=== PATIENT | male | born 1985 | race Caucasian/White ===

== ENCOUNTER → 2017-02-27 | Outpatient (CLI) | payer OTHER ==
[2017-02-27 11:40] LABS: DAYS OF ABSTINENCE 4; METHOD OF COLLECTION MASTURBATION; SEMEN TIME OF COLLECTION 1030; TYPE OF SPECIMEN CONTAINER STERILE CUP
[2017-02-27 11:41] LABS: SEMEN COLOR YELLOW-GRAY (GRY/GRYWHTE); SEMEN VOLUME 4.6 ML (>1.5)
[2017-02-27 11:42] LABS: SPERM VIABILITY STAIN NOT INDICATED % (>58%)
== END | disposition home or self-care (01) ==
LOC: C.LAB 11:24
PROVIDERS: ATTEND Obstetrics & Gynecology
DX: Z31.41 Encounter for fertility testing (principal)